=== PATIENT | male | born 1935 ===

== ENCOUNTER 2018-12-19 15:28 | Inpatient (IN) ==
[2018-12-19] MEDS ORDERED: Isovue-370 500 ML BOTTLE IVP ONE (16:25)
[2018-12-19] MEDS ORDERED: *HR* FentaNYL (PF) 100 MCG/2 ML VIAL IVP ONE ×2 (16:25→19:39)
[2018-12-19] MEDS ORDERED: Ondansetron 4 MG/2 ML VIAL IVP ONE (16:25)
[2018-12-19] MEDS ORDERED: 0.9 % Sodium Chloride 1,000 ML IVC ONE ×2 (16:29→19:38)
[2018-12-19 17:01] LABS: Bilirubin,Urine Negative (Negative); Blood,Urine Trace (Negative); Clarity,Urine Clear (Clear); Color,Urine Yellow (Yellow); Glucose,Urine (UA) Normal (Normal); Ketones,Urine Negative (Negative); Leukocyte Esterase,Urine Negative (Negative); Nitrite,Urine Negative (Negative); Protein,Urine Trace mg/dL (Neg-Trace); Specific Gravity,Urine 1.025 (1.010-1.025); Urobilinogen,Urine Normal (Normal)
[2018-12-19 17:03] LABS: Bacteria,Urine None Seen per hpf (None-Few); Hyaline Casts,Urine None Seen per lpf (None-Few); Squamous Epithelial Cell,Urine Moderate per lpf (None-Few); WBC,Urine 0-3 per hpf (0-3)
[2018-12-19 17:48] LABS: Basophils % 0.4 %; Eosinophils % 0.3 %; Hematocrit 44.8 % (37.5-50.1); Hemoglobin 14.8 g/dL (12.9-16.9); Immature Granulocytes % 0.3 % (0-4); Lymphocytes # 1.1 K/mcL (0.6-4.6); Lymphocytes % 11.6 %; Mean Corpuscular Hemoglobin 31.9 pg (28.0-33.3); Mean Corpuscular Volume 96.6 fL (83.0-100.0); Mean Platelet Volume 9.5 fL (9.4-12.4); Monocytes # 0.5 K/mcL (0.0-1.3); Monocytes % 5.3 %; Neutrophils # 8.1 K/mcL (1.6-8.9); Platelet Count 169 K/mcL (140-400); Red Blood Count 4.64 M/mcL (4.19-5.50); Red Cell Distribution Width 14.6 % (11.5-14.5); Segmented Neutrophils % 82.1 %; White Blood Count 9.9 K/mcL (4.3-11.1)
[2018-12-19 18:05] LABS: Alanine Aminotransferase 17 Units/L (7-52); Albumin/Globulin Ratio 1.9 (1.1-2.2); Alkaline Phosphatase 67 Units/L (34-104); Aspartate Amino Transferase 19 Units/L (13-39); BUN/Creatinine Ratio 16 (6-26); Bilirubin,Total 0.5 mg/dL (0.3-1.0); Blood Urea Nitrogen 20 mg/dL (8-23); Calcium 8.9 mg/dL (8.6-10.3); Carbon Dioxide 25 mEq/L (23-29); Chloride 108 mEq/L (98-107); Globulin 2.1 g/dL (2.4-3.5); Glucose 98 mg/dL (70-105); Lipase 24 Units/L (11-82); Osmolality,Calculated 293 (280-300); Potassium 3.9 mEq/L (3.5-5.1); Sodium 140 mEq/L (136-145); Total Protein 6.1 g/dL (6.4-8.9); eGFR For African Americans > 60 (> 60); eGFR For Non-African Americans 54 (> 60)
[2018-12-19] MEDS ORDERED: Piperacillin/Tazobactam 3.375 GM in 0.9 % Sodium Chloride Mini Bag 100 ML IVPB ONE (20:12)
[2018-12-19] MEDS ORDERED: Pyridostigmine Br 60 MG TABLET PO ONE (20:30)
[2018-12-19] MEDS: 0.9 % Sodium Chloride 1,000 ML IVC SCH (20:32)
[2018-12-19] MEDS ORDERED: Acetaminophen IV 1,000 MG/100 ML INFUS..BTL IVPB PRN (22:08)
[2018-12-19] MEDS ORDERED: Ondansetron 4 MG/2 ML VIAL IVP PRN (22:12)
[2018-12-20] MEDS: 0.9 % Sodium Chloride 1,000 ML IVC SCH (06:42)
[2018-12-20] MEDS ORDERED: Pyridostigmine Br 60 MG TABLET PO SCH (07:00)
[2018-12-20] MEDS ORDERED: Morphine Sulfate 2 MG/ML SYRINGE IVP PRN (07:44)
[2018-12-20] MEDS ORDERED: *HR* HYDROcodone/Acet 5/325 mg TABLET PO PRN (07:44)
[2018-12-20] MEDS ORDERED: *HR* FentaNYL (PF) 100 MCG/2 ML VIAL ONE (12:06)
[2018-12-20] MEDS ORDERED: *HR* Propofol 200 MG/20 ML VIAL IVP ONE (12:06)
[2018-12-20] MEDS ORDERED: Lidocaine HCL 4 ML Topical Solution (Laryng-O-Jet Kit Sterile Pak) TP ONE (12:08)
[2018-12-20] MEDS ORDERED: Lidocaine -MPF 2% 2 ML VIAL ONE (12:08)
[2018-12-20] MEDS ORDERED: *HR* Rocuronium Bromide 50 MG/5 ML VIAL ONE (12:10)
[2018-12-20] MEDS ORDERED: Ondansetron 4 MG/2 ML VIAL ONE (12:13)
[2018-12-20] MEDS ORDERED: Dexamethasone 4 MG/ML VIAL ONE (12:13)
[2018-12-20] MEDS ORDERED: EPHEDrine 50 MG/ML VIAL ONE (12:52)
[2018-12-20] MEDS ORDERED: Ondansetron 4 MG/2 ML VIAL IVP PRN (15:04)
[2018-12-20] MEDS ORDERED: Acetaminophen IV 1,000 MG/100 ML INFUS..BTL IVPB PRN (15:04)
[2018-12-20] MEDS: Pyridostigmine Br 60 MG TABLET PO SCH (17:12)
[2018-12-21 07:10] VITALS: BP 168/81
[2018-12-21] MEDS: Pyridostigmine Br 60 MG TABLET PO SCH (08:08)
[2018-12-21] MEDS ORDERED: Acetaminophen 325 MG TABLET PO PRN (08:12)
[2018-12-21] MEDS ORDERED: FLU Vac QV 19-20 (6Month+)/PF 0.5 ML SYRINGE IM ONE (08:16)
== END 2018-12-21 10:29 | disposition home or self-care (01) | DRG 352 ==
LOC: EMEROOARM 15:28 → 3ANU 20:46
PROVIDERS: ADMIT Surgery; ATTEND Surgery